=== PATIENT | male | born 1995 | race Caucasian/White ===

== ENCOUNTER 2017-05-14 23:52 | Emergency (ER) | payer MEDICAID ==
[2017-05-15] MEDS ORDERED: ALBUTEROL SULFATE 0.083% NEB 2.5 MG/3 ML AMPUL NEB ONE (01:00)
[2017-05-15] MEDS ORDERED: GUAIFENESIN/D-METHORPHAN (200-20 MG) SYRUP 10 ML PO ONE (01:00)
[2017-05-15] MEDS ORDERED: DIPHENHYDRAMINE HCL 50 MG CAPSULE PO ONE (01:02)
--- NOTE | 2017-05-15 01:02 | ER Document Report ---
ED Respiratory Problem - General Chief Complaint: Cold Symptoms Stated Complaint: COLD SYMPTOMS Time Seen by Provider: 05/15/17 01:00 Mode of Arrival: Ambulatory Information source: Patient Notes: Patient is a 21-year-old male with asthma who presents to the ER today for 4 days of cough, congestion, body aches, chills. He admits to shortness of breath and wheezing, he has been using his inhaler at home which has been helping but also making him cough worse. He admits to fever but has not taken his temperature. He saw someone in the urgent care yesterday who put him on Augmentin but "did not even look at me." TRAVEL OUTSIDE OF THE [place] IN LAST 30 DAYS: No - Related Data Allergies/Adverse Reactions: No Known Allergies Allergy (Unverified 05/14/17 23:53) Past Medical History - General Information source: Patient - Social History Smoking Status: Never Smoker Review of Systems - Review of Systems Constitutional: See HPI EENT: See HPI Cardiovascular: No symptoms reported Respiratory: See HPI Gastrointestinal: No symptoms reported Genitourinary: No symptoms reported Male Genitourinary: No symptoms reported Musculoskeletal: No symptoms reported Skin: No symptoms reported Hematologic/Lymphatic: No symptoms reported Neurological/Psychological: No symptoms reported Physical Exam - Vital signs Vitals: Temp Pulse Resp BP Pulse Ox 98.6 F 106 H 18 123/63 100 05/15/17 00:10 05/15/17 00:10 05/15/17 00:10 05/15/17 00:10 05/15/17 00:10 - Notes Notes: PHYSICAL EXAMINATION: GENERAL: Mildly ill-appearing, coughing, wearing mask in no acute distress. HEAD: Atraumatic, normocephalic. EYES: Pupils equal round and reactive to light, extraocular movements intact, sclera anicteric, conjunctiva are normal. ENT: ear canals without erythema or foreign body, TMs pearly cisneros with good bony landmarks, nares with mucoid discharge, oropharynx clear without exudates. Moist mucous membranes. NECK: Normal range of motion, supple without lymphadenopathy LUNGS: Cough, otherwise CTAB and equal. No wheezes rales or rhonchi. HEART: Regular rate and rhythm without murmurs ABDOMEN: Soft, no tenderness. No guarding, no rebound BACK: no vertebral tenderness, normal ROM GI/: no CVA tenderness EXTREMITIES: Normal range of motion, no pitting edema. No cyanosis. NEUROLOGICAL: Cranial nerves grossly intact. Normal sensory/motor exams. PSYCH: Normal mood, normal affect. SKIN: Warm, Dry, normal turgor, no rashes or lesions noted Course - Vital Signs Vital signs: Temp Pulse Resp BP Pulse Ox 98.6 F 106 H 18 123/63 100 05/15/17 00:10 05/15/17 00:10 05/15/17 00:10 05/15/17 00:10 05/15/17 00:10 Discharge - Discharge Clinical Impression: Sinus congestion, Bronchitis Condition: Stable Disposition: HOME, SELF-CARE Additional Instructions: Return immediately for any new or worsening symptoms. Follow up with primary care provider, call tomorrow to make followup appointment. Keep taking the Augmentin. Prescriptions: Hydrocodone Bit/Homatropine [Hycodan Syrup 5-1.5 mg/5 ml Ud Cup] 5 ml PO Q4HP PRN #120 ml PRN Reason: Albuterol Sulfate [Albuterol Sulfate 2.5mg/3 mL] 2.5 mg IH Q4 PRN #25 vial.neb PRN Reason: Fluticasone Propionate [Flonase Nasal [place] 50 Mcg/[place] 16 gm] 2 sprays NASL Q12 #1 inhaler Forms: Return to Work
[2017-05-15 02:03] LABS: A TYPE INFLUENZA AG NEGATIVE (NEGATIVE); B INFLUENZA AG NEGATIVE (NEGATIVE)
--- NOTE | 2017-05-15 02:14 | RADIOLOGY REPORT (SQ) ---
EXAM DESCRIPTION: CHEST PA/LAT CLINICAL HISTORY: sob, cough COMPARISON: None. FINDINGS: Frontal and lateral views of the chest. The cardiomediastinal silhouette has normal size and contour. No consolidation, pneumothorax, or pleural effusion. No displaced rib fractures identified. Upper abdominal soft tissues are unremarkable. IMPRESSION: 1. No acute pulmonary process identified.
[2017-05-15 02:23] VITALS: BP 129/63
== END 2017-05-15 02:23 | disposition home or self-care (01) ==
LOC: ER 23:52
DX: J40 Bronchitis, not specified as acute or chronic (principal); R05 Cough; R09.81 Nasal congestion; M79.1 Myalgia; R06.02 Shortness of breath; R06.2 Wheezing; R50.9 Fever, unspecified
CPT/HCPCS: 94640; 99283; 87804; 71046; J3490 ×2

== ENCOUNTER 2018-09-20 14:26 | Emergency (ER) | payer MEDICAID ==
[2018-09-20 14:30] VITALS: BP 121/63
[2018-09-20] MEDS ORDERED: IBUPROFEN 600 MG TABLET PO ONE (15:55)
--- NOTE | 2018-09-20 16:21 | RADIOLOGY REPORT (SQ) ---
EXAM DESCRIPTION: SHOULDER RIGHT 2 OR MORE VIEWS COMPLETED DATE/TIME: 09/20/2018 4:12 pm REASON FOR STUDY: pain after heavy object fell on shoulder COMPARISON: None. NUMBER OF VIEWS: Three views. TECHNIQUE: Internal rotation, external rotation, and Y view images acquired of the right shoulder. LIMITATIONS: None. FINDINGS: MINERALIZATION: Normal. BONES: No acute fracture or dislocation. No worrisome bone lesions. JOINTS: No dislocation. VISUALIZED LUNGS AND RIBS: No pneumothorax. No rib fracture. SOFT TISSUES: No radiopaque foreign body. OTHER: No other significant finding. IMPRESSION: NEGATIVE STUDY OF THE RIGHT SHOULDER. NO RADIOGRAPHIC EVIDENCE OF ACUTE INJURY. TECHNICAL DOCUMENTATION: JOB ID: [id number] [employer]- All Rights Reserved Reading location - IP/workstation name: [email or web address]
--- NOTE | 2018-09-20 16:52 | ER Document Report ---
HPI - HPI Time Seen by Provider: 09/20/18 15:32 Pain Level: 5 Notes: Patient is a 22-year-old male presenting to the emergency department with pain to his right shoulder. Patient reports that he was standing on the ground when a drill fell off of a 10 foot ladder landing onto his right shoulder. He states this happened yesterday. He states pain to the area. He has not taken any Tylenol or ibuprofen yesterday or today. He denies any previous history of trauma to this area. - CONSTITUTIONAL Constitutional: DENIES: Fever, Chills - EENT EENT: DENIES: Sore Throat, Ear Pain - NEURO Neurology: DENIES: Headache, Weakness, Vision blurred, Dizzinesss / Vertigo - CARDIOVASCULAR Cardiovascular: DENIES: Chest pain - RESPIRATORY Respiratory: DENIES: Trouble Breathing, Coughing - GASTROINTESTINAL Gastrointestinal: DENIES: Abdominal Pain, Black / Bloody Stools - MUSCULOSKELETAL Musculoskeletal: REPORTS: Extremity pain - R Shoulder Past Medical History - General Information source: Patient - Social History Smoking Status: Current Every Day Smoker Frequency of alcohol use: None Drug Abuse: None Family History: Reviewed & Not Pertinent Patient has suicidal ideation: No Patient has homicidal ideation: No Pulmonary Medical History: Reports: Hx Asthma, Hx Bronchitis Renal/ Medical History: Denies: Hx Peritoneal Dialysis Vertical Provider Document - CONSTITUTIONAL Notes: PHYSICAL EXAMINATION: GENERAL: Well-appearing, well-nourished and in no acute distress. HEAD: Atraumatic, normocephalic. EYES: Pupils equal round extraocular movements intact, conjunctiva are normal. ENT: Nares patent NECK: Normal range of motion LUNGS: No respiratory distress Musculoskeletal: Normal range of motion to left shoulder. Limited range of motion to right shoulder due to pain. No crepitus or deformity on palpation. There is pain to the lateral aspect of the left right shoulder. Normal radial pulse, normal cap refill. NEUROLOGICAL: Normal speech, normal gait. PSYCH: Normal mood, normal affect. SKIN: Warm, Dry, normal turgor, no rashes or lesions noted. - INFECTION CONTROL TRAVEL OUTSIDE OF THE [place] IN LAST 30 DAYS: No Course - Re-evaluation Re-evalutation: X-rays negative for any acute findings. Patient will be instructed to take ibuprofen and follow-up with his primary care provider if pain not being improved over the next 5 to 7 days. Patient verbalizes understanding and agreement this plan. - Vital Signs Vital signs: Temp Pulse Resp BP Pulse Ox 98 F 85 18 121/63 98 09/20/18 14:29 09/20/18 14:29 09/20/18 14:29 09/20/18 14:29 09/20/18 14:29 Discharge - Discharge Clinical Impression: Contusion of right shoulder Qualifiers: Encounter type: initial encounter Qualified Code(s): S40.011A - Contusion of right shoulder, initial encounter Condition: Stable Disposition: HOME, SELF-CARE Additional Instructions: Contusion Your injury has resulted in a contusion -- a crushing of the deep tissues. No injury to important structures was detected during the physician's exam. Contusions vary in the amount of pain they cause, and in the length of time required for healing. Typically, the area will become bruised, and will remain painful to touch for two or three weeks. However, most patients are back to working and playing within a few days. After the initial period of rest and cold-packs, your symptoms (together with the doctor's recommendations) will determine how rapidly you can get back to full activity. Usually this means "do what feels okay, but don't do things that hurt." If re-examination was recommended, it's important to follow up as instructed. Call the doctor or return any time if pain increases, if swelling becomes severe, if you develop numbness or weakness in an injured extremity, or if any other alarming symptoms occur. Ice Apply ice packs frequently against the painful area. Many different schedules are recommended, such as "20 minutes on, 20 minutes off" or "one hour ice, two hours rest." If you need to work, you may need to go longer between ice treatments. You should plan to have the area ice packed AT LEAST one-fourth of the time. The ice should be applied over the wrap, tape, or splint, or over a layer of cloth -- not directly against the skin. Some ice bags have a built-in cloth and can be put directly on the skin. Your injured part should be elevated as much as possible over the next 48 hours. Try to keep the injury above the level of the heart. Avoid use of the in jured area. Elevation and rest will decrease the swelling. Ibuprofen Ibuprofen is an excellent, safe drug for pain control. In addition, it has potent antiinflammatory effects which are beneficial, especially in the treatment of injuries, arthritis, or tendonitis. It's best to take ibuprofen with food. Persons with ulcer disease or allergy to aspirin should notify their physician of this before taking ibuprofen. Take the medication exactly as prescribed. Don't take additional doses unless instructed to do so by your doctor. If you develop wheezing, shortness of breath, hives, faintness, stomach pain, vomiting, or dark black stools, return for re-evaluation at once. The x-rays were negative for any fracture or dislocation. Please take ibuprofen [id number] as directed to help with pain and inflammation. If your pain persists past the next 7 to 10 days please follow-up with orthopedics. The x-ray is do not show ligaments or tendons so this negative x-ray does not 100% rule out a ligament or tendon injury. Forms: Return to Work
== END 2018-09-20 17:00 | disposition home or self-care (01) ==
LOC: ER 14:26
DX: S40.011A Contusion of right shoulder, initial encounter (principal); W20.8XXA Other cause of strike by thrown, projected or falling object, initial encounter; F17.200 Nicotine dependence, unspecified, uncomplicated
CPT/HCPCS: 99283; 73030; J3490

== ENCOUNTER 2019-04-13 19:14 | Emergency (ER) | payer MEDICAID ==
[2019-04-13] MEDS ORDERED: KETOROLAC TROMETHAMINE INJ/PF 30 MG/1 ML SDV IV ONE (19:50)
[2019-04-13] MEDS ORDERED: NORMAL SALINE 1000 ML 1,000 ML IV ONE (19:50)
--- NOTE | 2019-04-13 19:53 | ER Document Report ---
ED Medical Screen (RME) - General Chief Complaint: Urinary Problem Stated Complaint: URINARY PROBLEM Time Seen by Provider: 04/13/19 19:43 Primary Care Provider: MARK GARCIA MD [Primary Care Provider] - Follow up as needed TRAVEL OUTSIDE OF THE [place] IN LAST 30 DAYS: No - HPI Notes: 04/13/19 19:51 23-year-old male presents to emergency room with complaints of left flank pain, gone over the last 2 days. Has not tried any [id number] medication. Patient denies history of renal stones however says that everyone in his family has renal stones. Decreased eating drinking without issues. Patient states when he "feels the stone move it is 10 out of 10 pain". Denies pain with urination. Denies any fevers or chills. Has not seen his primary care provider for this issue. I have greeted and performed a rapid initial assessment of this patient. A comprehensive ED assessment and evaluation of the patient, analysis of test results and completion of the medical decision making process will be conducted by additional ED providers. PHYSICAL EXAMINATION: GENERAL: Well-appearing, well-nourished and in no acute distress. HEAD: Atraumatic, normocephalic. EYES: Pupils equal round extraocular movements intact, conjunctiva are normal. NECK: Normal range of motion LUNGS: No respiratory distress Musculoskeletal: Normal range of motion. ABD: noted Left cva tenderness on palpation. no pain to R cva NEUROLOGICAL: Normal speech, normal gait. PSYCH: Normal mood, normal affect. SKIN: Warm, Dry, normal turgor, no rashes or lesions noted. 04/13/19 19:52 - Related Data Allergies/Adverse Reactions: No Known Allergies Allergy (Verified 11/11/18 09:18) Past Medical History Pulmonary Medical History: Reports: Hx Asthma, Hx Bronchitis Renal/ Medical History: Denies: Hx Peritoneal Dialysis Past Surgical History: Reports: Hx Tonsillectomy Physical Exam - Vital signs Vitals: Temp Pulse Resp BP Pulse Ox 97.8 F 93 16 141/81 H 100 04/13/19 19:18 04/13/19 19:18 04/13/19 19:18 04/13/19 19:18 04/13/19 19:18 Course - Vital Signs Vital signs: Temp Pulse Resp BP Pulse Ox 97.8 F 93 16 141/81 H 100 04/13/19 19:18 04/13/19 19:18 04/13/19 19:18 04/13/19 19:18 04/13/19 19:18 Doctor's Discharge - Discharge Referrals: MARK GARCIA MD [Primary Care Provider] - Follow up as needed
[2019-04-13 20:26] LABS: ABSOLUTE BASOPHILS # (AUTO) 0.1 10^3/uL (0.0-0.2); ABSOLUTE EOSINOPHILS # (AUTO) 0.4 10^3/uL (0.0-0.6); ABSOLUTE LYMPHOCYTES (AUTO) 1.7 10^3/uL (0.5-4.7); ABSOLUTE MONOCYTES (AUTO) 1.1 10^3/uL (0.1-1.4); ABSOLUTE NEUT (AUTO) 13.9 10^3/uL (1.7-8.2); BASOPHILS % (AUTO) 0.3 % (0-2); EOSINOPHILS % (AUTO) 2.1 % (0-6); HEMATOCRIT 44.9 % (37.9-51.0); LYMPHOCYTES % (AUTO) 9.9 % (13-45); MEAN CORPUSCULAR HGB CONC 33.5 g/dL (32.0-36.0); MEAN CORPUSCULAR VOLUME 93 fl (80-97); MONOCYTES % (AUTO) 6.7 % (3-13); PLATELET COUNT 323 10^3/uL (150-450); RED BLOOD COUNT 4.85 10^6/uL (4.35-5.55); TOTAL CELLS COUNTED % (AUTO) 100 %; WHITE BLOOD COUNT 17.2 10^3/uL (4.0-10.5)
[2019-04-13 20:51] LABS: ALBUMIN 4.9 g/dL (3.5-5.0); ALKALINE PHOSPHATASE 59 U/L (38-126); ANION GAP 13 (5-19); ASPARTATE AMINO TRANSFERASE 26 U/L (17-59); BILIRUBIN,DIRECT 0.2 mg/dL (0.0-0.4); BILIRUBIN,TOTAL 0.6 mg/dL (0.2-1.3); BLOOD UREA NITROGEN 15 mg/dL (7-20); CALCIUM 10.3 mg/dL (8.4-10.2); CARBON DIOXIDE 29 mmol/L (22-30); CHLORIDE 98 mmol/L (98-107); GLUCOSE 79 mg/dL (75-110); POTASSIUM 4.2 mmol/L (3.6-5.0)
[2019-04-13 21:22] LABS: APPEARANCE,URINE TURBID; BILIRUBIN,URINE NEGATIVE (NEGATIVE); COLOR,URINE YELLOW; GLUCOSE, URINE NEGATIVE (NEGATIVE); KETONES,URINE NEGATIVE (NEGATIVE); LEUKOCYTE ESTERASE,URINE NEGATIVE (NEGATIVE); NITRITE,URINE NEGATIVE (NEGATIVE); PROTEIN,URINE 30 mg/dL (NEGATIVE); URINE SPECIFIC GRAVITY 1.028
--- NOTE | 2019-04-13 21:35 | RADIOLOGY REPORT (SQ) ---
EXAM DESCRIPTION: CT ABDOMEN PELVIS WITHOUT IV CONTRAST COMPLETED DATE/TME: 04/13/2019 19:49 CLINICAL HISTORY: 23 years, Male, Left flank pain Comparison: None TECHNIQUE: Contiguous axial CT images of the abdomen and pelvis were obtained. Sagittal and coronal reformats were reviewed. This exam was performed according to our departmental dose-optimization program, which includes automated exposure control, adjustment of the mA and/or kV according to patient size and/or use of iterative reconstruction technique. FINDINGS: Lung bases: Clear Liver:Unremarkable. No focal liver lesion. Gallbladder:Unremarkable. No gallstones. No gallbladder wall thickening or pericholecystic fluid. Spleen:Unremarkable Pancreas: Pancreas is unremarkable. Adrenal glands:Within normal limits. Kidneys/ureters: The right kidney is normal. There is mild left hydronephrosis and hydroureter secondary to a 3 mm calculus just proximal to the ureterovesical junction. Stomach/small bowel/colon: Stomach is unremarkable. Small bowel is unremarkable. Colon is unremarkable. Appendix: No evidence of appendicitis. Peritoneum: No free fluid. Vascular structures: within normal limits Lymph nodes: No abnormal lymph nodes. Bladder:Unremarkable. Pelvic organs: No acute abnormality Bones: No acute osseous abnormality. Soft tissues: Unremarkable.. IMPRESSION: Obstructive calculus in the distal left ureter just above the ureterovesical junction measuring approximately 3 mm.
[2019-04-13] MEDS ORDERED: OXYCODONE HCL IR 5 MG TABLET PO ONE (22:08)
[2019-04-13] MEDS ORDERED: HYDROMORPHONE HCL INJ/PF 2 MG/ML AMPULE IV ONE (22:11)
[2019-04-13] MEDS ORDERED: RINGERS SOLUTION,LACTATED 1,000 ML IV ONE (22:11)
[2019-04-13] MEDS ORDERED: ACETAMINOPHEN 325 MG TABLET PO ONE (22:12)
--- NOTE | 2019-04-13 22:12 | ER Document Report ---
ED General - General Chief Complaint: Urinary Problem Stated Complaint: URINARY PROBLEM Time Seen by Provider: 04/13/19 19:43 Primary Care Provider: MARK GARCIA MD [Primary Care Provider] - Follow up as needed Information source: Patient TRAVEL OUTSIDE OF THE [place] IN LAST 30 DAYS: No - HPI Notes: 23 wm denies pmh hx presents w/ severe intermittent gripping pain L flank. first time was few d/a, but returned today suddenly and has been on and off since arriving to ED in severe pain. denies vomiting. did have some nausea. no f/c/s. did have few days ago after very firsr bout severe L flank pain some blood in his urine which then cleared and has remained clear in these last few days. on urinary ros, he denies interruption/change in stream. denies straining/dribbling/post void urgency or sx or burning or dysuria. he denies a h/o kidney stones. denies testicular or groin pain or genital lesions or pain inguinal areas. denies penile discharge. - Related Data Allergies/Adverse Reactions: No Known Allergies Allergy (Verified 11/11/18 09:18) Past Medical History - Social History Smoking Status: Current Every Day Smoker Frequency of alcohol use: Rare Drug Abuse: None Family History: Reviewed & Not Pertinent Patient has suicidal ideation: No Patient has homicidal ideation: No Pulmonary Medical History: Reports: Hx Asthma, Hx Bronchitis Renal/ Medical History: Denies: Hx Peritoneal Dialysis Past Surgical History: Reports: Hx Tonsillectomy Review of Systems - Review of Systems Constitutional: No symptoms reported, See HPI EENT: No symptoms reported Cardiovascular: No symptoms reported Respiratory: No symptoms reported Gastrointestinal: No symptoms reported, Nausea. denies: Abdomen distended, Abdominal pain, Diarrhea, Vomiting, Poor appetite, Poor fluid intake, Rectal bleeding Genitourinary: See HPI Male Genitourinary: No symptoms reported Musculoskeletal: No symptoms reported Skin: No symptoms reported Hematologic/Lymphatic: No symptoms reported Neurological/Psychological: No symptoms reported Physical Exam - Vital signs Vitals: Temp Pulse Resp BP Pulse Ox 97.8 F 93 16 141/81 H 100 04/13/19 19:18 04/13/19 19:18 04/13/19 19:18 04/13/19 19:18 04/13/19 19:18 Interpretation: Normal - General General appearance: Appears well, Alert - HEENT Head: Normocephalic, Atraumatic Eyes: Normal Pupils: PERRL - Respiratory Respiratory status: No respiratory distress Chest status: Nontender Breath sounds: Normal Chest palpation: Normal - Cardiovascular Rhythm: Regular Heart sounds: Normal auscultation Murmur: No - Abdominal Inspection: Normal Distension: No distension Bowel sounds: Normal Tenderness: Nontender Organomegaly: No organomegaly - Back Back: Normal, Nontender - Extremities General upper extremity: Normal inspection, Nontender, Normal color, Normal ROM, Normal temperature General lower extremity: Normal inspection, Nontender, Normal color, Normal ROM, Normal temperature, Normal weight bearing. No: Jose's sign - Neurological Neuro grossly intact: Yes Cognition: Normal Orientation: AAOx4 [place] Coma Scale Eye Opening: Spontaneous [place] Coma Scale Verbal: Oriented [place] Coma Scale Motor: Obeys Commands [place] Coma Scale Total: 15 Speech: Normal Motor strength normal: LUE, RUE, LLE, RLE Sensory: Normal - Psychological Associated symptoms: Normal affect, Normal mood - Skin Skin Temperature: Warm Skin Moisture: Dry Skin Color: Normal Course - Re-evaluation Re-evalutation: 04/17/19 16:04 pt given initially toradol. helped then pain returned. UA shows some blood no other evidence infection. other labs wnl. CT shows 3mm stone obstructing at L distal ureter. for second bout of pain in ED pt given 0.5 dilaudid and 975 po tylenol. observed for few more hours. able to tolerate po. no vomiting during ED course. educated pt on kidney stones since this was his first, how to strain his urine and set up follow up w/ urologist. he understands it's important he cont to eat and drink well. and if he does develop hematuria that persists or f/c/s or inability to hold down po he must return in meantime. did instruct use on ibu and if absolutely needed few doses oxycodone 5 mg w/ miralax Rx'd. d/c home appearing well, pain very much controlled fof now. pt understands variable rate of passage. most stones that are 3mm will pass on own, but that's why i'd like him to f/u w/ urologist and of course pcp anyway. - Vital Signs Vital signs: Temp Pulse Resp BP Pulse Ox 97.9 F 86 16 140/82 H 100 12/13/19 01:20 04/14/19 01:20 04/14/19 01:20 04/14/19 01:20 04/14/19 01:20 - Laboratory Result Diagrams: 04/13/19 19:51 04/13/19 19:51 Laboratory results interpreted by me: 04/13/19 04/13/19 04/13/19 19:51 19:51 19:51 WBC 17.2 H Lymph % (Auto) 9.9 L Absolute Neuts (auto) 13.9 H Seg Neutrophils % 81.0 H Creatinine 1.34 H Calcium 10.3 H Urine Protein 30 H Urine Blood LARGE H Urine Urobilinogen 2.0 H Discharge - Discharge Clinical Impression: Ureter, calculus, Ureter colic Condition: Good Disposition: HOME, SELF-CARE Additional Instructions: Please follow-up with urology which we have given you a referral for. You have a 3 mm stone in your left ureter towards the junction with your bladder. Try to use the strainer when you pee to potentially catch any stone so they can pos sibly find out what type of stone it is, given this is your first kidney stone. Try to use just ibuprofen 600 mg as needed for pain every 6 hours if eating and drinking well you can also do Tylenol 650 mg every 6 hours t as needed for pain to alternate with ibuprofen. If these are not getting your pain to a tolerable level, you can use 5 mg oxycodone. If you do take these please also take dose of MiraLAX because it will constipate you. Return or seek medical attention sooner if you have nausea vomiting cannot hold down any food or liquid, start developing fevers chills sweats, have return of blood in your urine that does not go away. Or if your pain is not controlled at all with the above. Also will start the medication reportedly will help with urinary spasm and discomfort. Prescriptions: Oxycodone HCl [Oxy-Ir 5 mg Tablet] 5 mg PO Q4HP PRN #10 tab PRN Reason: Pain Scale Of 5 Polyethylene Glycol 3350 [Miralax Powder 17 gm/Packet] 1 packet PO DAILY #10 pkg Referrals: MARK GARCIA MD [Primary Care Provider] - Follow up as needed
[2019-04-14 01:21] VITALS: BP 140/82
== END 2019-04-14 01:19 | disposition home or self-care (01) ==
LOC: ER 19:14
DX: N13.2 Hydronephrosis with renal and ureteral calculous obstruction (principal); R31.9 Hematuria, unspecified; R10.9 Unspecified abdominal pain; R11.0 Nausea; F17.200 Nicotine dependence, unspecified, uncomplicated; J45.909 Unspecified asthma, uncomplicated
CPT/HCPCS: 99284; 96361; 96374; 96375; 36415; 83690; 85025; 80053; 81001; 74176; J3490; J1885; J1170; J7030; J7120